=== PATIENT | female | born 1960 | race Caucasian/White ===

== ENCOUNTER → 2021-08-08 11:51 | Outpatient (REF) | payer OTHER, SELFPAY ==
--- NOTE | 2021-08-08 12:02 | CA_ITS ---
Transthoracic Echocardiogram Patient (Last, First, Middle): Poornima Chase, Gender: Female Date of : 1960 Age: 61 Procedure Date: 08/08/2021 Procedure Type: Transthoracic Echocardiogram Location: [place] Height: 172.72 cm Weight: 69.85 kg BSA: 1.83 m2 Heart Rate: bpm BP: 120 / 76 mmHg Sociology Adjunct Instructor: TO Referring MD: Avelino Agarwal PA-C Trolley Collector: Arnaldo Powell MD Symptoms: R01.1 MURMUR Study Quality: Good ECG Rhythm: Sinus Conclusions: - 1. Normal LV systolic and diastolic function 2. Mildly dilated left atrium 3. Normal cardiac valvular Doppler 4. No gross pericardial effusion Findings Left Ventricle Normal left ventricular size, thickness, and systolic function. The visually estimated ejection fraction is between 60-65%. Spectral Doppler is indicative of a normal filling pattern. Right Ventricle Normal right ventricular cavity size and systolic function. Atria The left atrium is mildly dilated. Interatrial shunt cannot be excluded. The right atrium is normal in size. Aortic Valve Normal aortic valve structure and function. There is no aortic valve stenosis. There is no aortic valve regurgitation. Mitral Valve Normal mitral valve structure and function. There is trace mitral valve regurgitation. There is no mitral valve stenosis. Pulmonic Valve The pulmonic valve is likely normal. Tricuspid Valve Normal tricuspid valve structure. There is trace tricuspid valve regurgitation. The right ventricular systolic pressure is normal. The right ventricular systolic pressure is 26 mmHg. Normal right atrial pressure. There is no evidence of pulmonary hypertension. Great Vessels All visible segments of the aorta are normal in size. The pulmonary artery was not well visualized. Venous The inferior vena cava is normal in size and collapses greater than 50% with inspiration. Pericardium/Pleural There is no evidence of pericardial effusion. Prior Study Comparison No prior study available for comparison. Measurements 2D Linear Measurements IVSd: 0.86 0.6-0.9/0.6-1.0 cm LVIDd: 4.55 3.9-5.3/4.2-5.9 cm LVIDd Index: 2.49 2.4-3.2/2.2-3.1 cm/m2 LVIDs: 2.91 2.0-3.6 cm LVPWd: 0.86 0.7-1.1 cm LA Diam: 4.10 2.7-3.8/3.0-4.0 cm LAIDs Index: 2.24 1.5-2.3 cm/m2 LV Mass: 158.14 67-162/88-224 g LV Mass Index: 86.42 43-95/49-115 g/m2 LVOT Diam: 2.10 3.0+(-)1.3 cm 2D Systolic Function EF 4C: 64.30 >55% EF 2C: 68.90 >55% EF BiP: 66.20 >55% Mitral Valve MV Pk E: 0.87 MV PK A: 0.78 MV Decel Time: 157.00 E/A: 1.10 E'Lateral: 14.40 E'Medial: 7.73 E/E' Med: 11.20 E/E' Lat: 6.00 PHT: 46.00 MVA PHT: 4.78 Decel Harding: 5.50 Aortic Valve AoV Pk Jostin: 1.33 AoV Mn Jostin: 0.96 AoV VTI: 0.33 AoV Pk Grad: 7.00 Aov Mn Grad: 4.00 MELLISA Cont.VTI: 2.86 LVOT LVOT Pk Jostin: 1.12 LVOT Mn Jostin: 0.74 LVOT VTI: 0.27 LVOT Pk Grad: 5.00 LVOT Mn Grad: 3.00 LVOT Diam: 2.10 LVOT Area: 3.46 Diastolic Function MV Pk E: 0.87 MV Pk A: 0.78 E/A: 1.10 E'Medial: 7.73 E/E' Med: 11.20 E' Laterial: 14.40 E/E' Lat: 6.00 Right Ventricle TAPSE (mm): 22.20 TVS' Jostin: 13.30 Tricuspid Valve TR Pk Jostin: 2.10 TR Pk Grad: 18.00 RA Press: 8.00 RVSP: 26.00 Great Vessels Aorta Sinus of Valsalva: 3.39 2.0-3.[address] Ridge: 3.12 1.7-3.4 cm Ao Asc: 3.50 2.1-3.4 cm Ao Arch: 3.10 Updated in Other Vendor System with Status of Final Arnaldo Powell MD electronically signed on 08/09/2021 1:06:50 PM with status of Final
== END ==
LOC: HO.CARD 11:51
PROVIDERS: Visit Provider Student in an Organized Health Care Education/Training Program
DX: R01.1 Cardiac murmur, unspecified (principal)
CPT/HCPCS: 93306